=== PATIENT | male | born 1960 | race Caucasian/White ===

== ENCOUNTER 2022-05-03 08:04 | Outpatient (CLI) | payer BC | END 2022-05-03 08:05 | disposition home or self-care (01) | LOC: TBSIIMAG 08:04 | PROVIDERS: ATTEND Specialist | DX: M51.16 Intervertebral disc disorders with radiculopathy, lumbar region (principal); M47.26 Other spondylosis with radiculopathy, lumbar region; M47.815 Spondylosis without myelopathy or radiculopathy, thoracolumbar region; M47.817 Spondylosis without myelopathy or radiculopathy, lumbosacral region; G95.19 Other vascular myelopathies | CPT/HCPCS: 72148 ==

== ENCOUNTER 2022-09-20 14:46 | Outpatient (CLI) | payer BC ==
[2022-09-20 15:36] LABS: Hemoglobin 13.1 g/dL (13.5-17.5); Mean Corpuscular HGB CONC 33.2 g/dL (32.0-36.0); Mean Corpuscular Volume 87.6 fl (81.2-95.1); Platelet Count 262 10x3/uL (150-450); RBC Distribution Width 13.2 % (11.5-14.5); Red Blood Cell (RBC) Count 4.51 10x6/uL (4.32-5.72); White Blood Cell (WBC) Count 7.3 10x3/uL (3.5-10.5)
[2022-09-20 15:53] LABS: Anion Gap 13 mmol/L (10-20); BUN (Urea Nitrogen) 20 mg/dL (8.4-25.7); Calc. Creatinine Clearance 0 mL/min (70-130); Carbon Dioxide 28 mmol/L (23-31); Chloride 100 mmol/L (98-107); Estimated GFR 52; Glucose 106 mg/dL (80-115); Potassium 4.1 mmol/L (3.5-5.1); Sodium 137 mmol/L (136-145)
== END 2022-09-20 14:47 | disposition home or self-care (01) ==
LOC: LABBT 14:46
PROVIDERS: ATTEND Neurological Surgery
DX: Z01.818 Encounter for other preprocedural examination (principal); M43.16 Spondylolisthesis, lumbar region
CPT/HCPCS: 80048; 85027; 93005; 93010

== ENCOUNTER → 2022-09-27 | Day surgery (SDC) | payer BC ==
[2022-09-22 13:00] VITALS: BMI 34.2
[~2022-09-27] MED LIST: CEFAZOLIN 2 GM VIAL ONE; Dexamethasone 20 MG/5 ML VIAL ONE; GLYCOPYRROLATE/PF 0.2 MG/ML VIAL ONE; HYDROcodone/Acetaminophen 10/325 mg Tablet ONE; HYDROmorphone 0.5 MG/0.5 ML SYRINGE ONE; Ketorolac Tromethamine 30 MG/ML VIAL ONE; Lidocaine 1% PF 5 ML VIAL ONE; NEOSTIGMINE 3 MG/3 ML SYR 3 MG/3 ML SYRINGE ONE; Ondansetron PF 4 MG/2 ML Vial ONE; PROPOFOL 200 MG/20 ML VIAL ONE; Rocuronium Bromide 10 MG/ML (10ML VIAL) ONE; Sodium Chloride 0.9% 100 ML ONE; Tamsulosin HCl 0.4 MG CAP ONE; Tamsulosin HCl 0.4 MG CAP PO SCH; Vancomycin 1 GM VIAL ONE; ePHEDrine Sulfate 50 MG/10 ML VIAL ONE; fentaNYL 50 mcg/mL 1 mL Vial ONE; fentaNYL PF 100 MCG/2 ML SYRINGE ONE
== END | disposition home or self-care (01) ==
LOC: SDC 05:39
PROVIDERS: ATTEND Neurological Surgery
PROC: 0SG0071 Fusion of Lumbar Vertebral Joint with Autologous Tissue Substitute, Posterior Approach, Posterior Column, Open Approach (ICD-10-PCS; principal; 2022-09-27)
PROC: 0SG3071 Fusion of Lumbosacral Joint with Autologous Tissue Substitute, Posterior Approach, Posterior Column, Open Approach (ICD-10-PCS; principal; 2022-09-27)
DX: M43.16 Spondylolisthesis, lumbar region (principal); M54.16 Radiculopathy, lumbar region; M43.17 Spondylolisthesis, lumbosacral region; I10 Essential (primary) hypertension; Z79.899 Other long term (current) drug therapy
CPT/HCPCS: C1713; C1768; C1776; J1100; J1170; J1885; J2405; J2704; J3010; J3370; J3490

== ENCOUNTER 2022-10-12 12:48 | Outpatient (CLI) | payer BC | END 2022-10-12 12:49 | disposition home or self-care (01) | LOC: TBSIIMAG 12:48 | PROVIDERS: ATTEND Neurological Surgery | DX: M43.16 Spondylolisthesis, lumbar region (principal); M47.816 Spondylosis without myelopathy or radiculopathy, lumbar region; Z98.890 Other specified postprocedural states | CPT/HCPCS: 72100 ==